=== PATIENT | female | born 1945 ===

== ENCOUNTER 2023-08-13 18:43 | Inpatient (IN) | payer OTHER ==
[~2023-08-13] VITALS: Ht 170.2 cm; Wt 71.8 kg
[2023-08-13 19:30] VITALS: PULSE 100; RESP 20; O2SAT 94
[2023-08-13 19:37] LABS: Basophils # (auto) 0.1 10 ^3/uL (0-0.2); Basophils % (auto) 0.7 % (0.0-2.0); Eosinophils # (auto) 0 10 ^3/uL (0-0.8); Eosinophils % (auto) 0.2 % (0.0-7.0); Hemoglobin 14.7 g/dL (12.2-16.2); Lymphocytes # (auto) 1.2 10 ^3/uL (0.4-5.4); Lymphocytes % (auto) 10.1 % (10.0-50.0); Mean Corpuscular Hemoglobin 29.9 pg (28.0-32.0); Mean Corpuscular Hgb Conc. 33.4 g/dL (32.0-36.0); Mean Corpuscular Volume 89.6 fL (80.0-100.0); Monocytes # (auto) 0.7 10 ^3/uL (0-1.3); Monocytes % (auto) 5.7 % (0.0-12.0); Neutrophils # (auto) 10.1 10 ^3/uL (1.6-8.6); Neutrophils % (auto) 83.3 % (37.0-80.0); Nucleated Red Blood Cells % 0.1 %; Red Blood Cells 4.91 10^6/uL (4.0-5.20); Red Cell Distribution Width 13.3 % (11.8-14.3); White Blood Cell 12.1 10^3/uL (4.4-10.8)
[2023-08-13 19:55] LABS: INR 0.99 (0.9-1.15); Partial Thromboplastin Time 26.2 SEC (24.5-34.5); Prothrombin Time 10.4 sec (9.3-11.8)
[2023-08-13 19:57] LABS: Alanine Aminotransferase 109 U/L (7-40); Albumin 4.4 g/dL (3.2-4.8); Alkaline Phosphatase 75 U/L (46-116); Anion Gap 8 (5-15); Aspartate Aminotransferase 120 U/L (13-40); BUN/Creatinine Ratio 14.3 (10.0-20.0); Blood Urea Nitrogen 12 mg/dL (9-23); Carbon Dioxide 23 mmol/L (20-30); Chloride 107 mmol/L (98-107); Glucose 144 mg/dL (74-106); Lipase 25 U/L (12-53); Magnesium 2.3 mg/dL (1.6-2.6); Potassium 4.6 mmol/L (3.5-5.1); Sodium 138 mmol/L (136-145)
[2023-08-13 19:58] LABS: Bilirubin, Total 0.5 mg/dL (0.2-1.0); Total Protein 7.1 g/dL (5.7-8.2)
[2023-08-13 20:56] LABS: Urine Bacteria NONE SEEN /hpf (None Seen); Urine Blood Negative /uL (Negative); Urine Clarity Clear (Clear); Urine Color Colorless (Yellow); Urine Protein, UAD Negative (Negative); Urine Specific Gravity 1.006 (1.001-1.035); Urine Urobilinogen Normal (Negative); Urine WBC 2 /hpf (0 - 5)
[2023-08-13] MEDS ORDERED: MORPHINE SULFATE 4 MG/ML SYR/VIAL IV ONE (21:45)
[2023-08-13] MEDS ORDERED: TEMAZEPAM 15 MG CAP PO ONE (21:45)
[2023-08-13] MEDS ORDERED: ENOXAPARIN SOD 80 MG/0.8ML SYRINGE SC ONE (21:45)
[2023-08-13] MEDS ORDERED: ONDANSETRON HCL 4 MG/2 ML VIAL IM ONE (21:45)
[2023-08-13 22:33] LABS: COVID19 ANTIGEN SOFIA FIA NEGATIVE (NEGATIVE); Respiratory Syncytial Virus Ag Negative
[2023-08-14] VITALS (8 sets, daily range): BP systolic 134–161; BP diastolic 69–90; PULSE 78–88; RESP 16–20; TEMP 98.2–98.6; O2SAT 92–95
[2023-08-14] MEDS ORDERED: NITROGLYCERIN 0.4 MG SL TAB SL PRN
[2023-08-14] MEDS ORDERED: MORPHINE SULFATE INJ 2 MG/ml SYRG IV PRN
[2023-08-14] MEDS ORDERED: ONDANSETRON HCL 4 MG/2 ML VIAL IV PRN
[2023-08-14] MEDS ORDERED: cefTRIAXone 1GM/50ML D5W 50 ML IV ONE
[2023-08-14 04:45] LABS: Basophils # (auto) 0.1 10 ^3/uL (0-0.2); Basophils % (auto) 1.2 % (0.0-2.0); Eosinophils # (auto) 0.1 10 ^3/uL (0-0.8); Eosinophils % (auto) 0.7 % (0.0-7.0); Hematocrit 42.4 % (36.0-46.0); Hemoglobin 14.3 g/dL (12.2-16.2); Lymphocytes % (auto) 22.3 % (10.0-50.0); Mean Corpuscular Hemoglobin 30.5 pg (28.0-32.0); Mean Corpuscular Hgb Conc. 33.7 g/dL (32.0-36.0); Mean Corpuscular Volume 90.3 fL (80.0-100.0); Monocytes # (auto) 0.6 10 ^3/uL (0-1.3); Monocytes % (auto) 7.2 % (0.0-12.0); Neutrophils # (auto) 6.2 10 ^3/uL (1.6-8.6); Neutrophils % (auto) 68.6 % (37.0-80.0); Red Cell Distribution Width 13.4 % (11.8-14.3)
[2023-08-14 05:00] LABS: Alanine Aminotransferase 78 U/L (7-40); Alkaline Phosphatase 65 U/L (46-116); Calcium 8.3 mg/dL (8.7-10.4); Carbon Dioxide 24 mmol/L (20-30); Chloride 112 mmol/L (98-107); Glucose 109 mg/dL (74-106)
[2023-08-14 05:01] LABS: Anion Gap 6 (5-15); Aspartate Aminotransferase 60 U/L (13-40); Bilirubin, Total 0.4 mg/dL (0.2-1.0); Blood Urea Nitrogen 8 mg/dL (9-23); Potassium 4.2 mmol/L (3.5-5.1); Sodium 142 mmol/L (136-145); Total Protein 6.7 g/dL (5.7-8.2)
[2023-08-14 05:42] LABS: BUN/Creatinine Ratio 10.1 (10.0-20.0)
[2023-08-14] MEDS ORDERED: IOHEXOL 350 MG/ML 100ML IJ ONE (06:35)
[2023-08-14] MEDS: LEVOTHYROXINE SODIUM 50 MCG TAB PO SCH (06:58)
[2023-08-14 07:13] LABS: LDL Cholesterol 90 mg/dL (< 100); Triglycerides 148 mg/dL (< 150)
[2023-08-14 07:15] LABS: Cholesterol 142 mg/dL (< 200); HDL Cholesterol 43 mg/dL (40-59)
[2023-08-14] MEDS: LOSARTAN POTASSIUM 25 MG TAB PO SCH (09:39)
[2023-08-14] MEDS: ENOXAPARIN SOD 40 MG/0.4 ML SYRINGE SC SCH (09:40)
[2023-08-14] MEDS: GABAPENTIN 400 MG CAP PO SCH ×2 (09:40→23:07)
[2023-08-14] MEDS ORDERED: AZITHROMYCIN 500MG/ 250ML 250 ML IV SCH (10:00)
[2023-08-14] MEDS: metroNIDAZOLE 500MG/100ML 100 ML IV SCH ×2 (13:50→23:09)
[2023-08-14] MEDS: hydrALAZINE HCL 20 MG/ML VL IV PRN (18:03)
[2023-08-14] MEDS: ACETAMINOPHEN 325 MG TAB PO PRN ×2 (18:03→23:36)
[2023-08-14] MEDS: ATORVASTATIN 20 MG TAB PO SCH (23:07)
[2023-08-14] MEDS: cefTRIAXone 1GM/50ML D5W 50 ML IV SCH (23:10)
[2023-08-15] VITALS (7 sets, daily range): BP systolic 118–145; BP diastolic 58–88; PULSE 67–84; RESP 16–20; TEMP 97.3–98.9; O2SAT 92–94
[2023-08-15 05:52] LABS: Basophils # (auto) 0.1 10 ^3/uL (0-0.2); Basophils % (auto) 0.8 % (0.0-2.0); Eosinophils # (auto) 0.1 10 ^3/uL (0-0.8); Eosinophils % (auto) 1.8 % (0.0-7.0); Hematocrit 43.5 % (36.0-46.0); Hemoglobin 14.5 g/dL (12.2-16.2); Lymphocytes # (auto) 1.9 10 ^3/uL (0.4-5.4); Lymphocytes % (auto) 24.1 % (10.0-50.0); Mean Corpuscular Hemoglobin 30.1 pg (28.0-32.0); Mean Corpuscular Hgb Conc. 33.4 g/dL (32.0-36.0); Mean Corpuscular Volume 90.2 fL (80.0-100.0); Monocytes # (auto) 0.7 10 ^3/uL (0-1.3); Monocytes % (auto) 8.6 % (0.0-12.0); Neutrophils # (auto) 5.1 10 ^3/uL (1.6-8.6); Neutrophils % (auto) 64.7 % (37.0-80.0); Nucleated Red Blood Cells % 0.1 %; Red Blood Cells 4.82 10^6/uL (4.0-5.20); Red Cell Distribution Width 13.4 % (11.8-14.3); White Blood Cell 7.8 10^3/uL (4.4-10.8)
[2023-08-15 05:56] LABS: Alanine Aminotransferase 59 U/L (7-40); Alkaline Phosphatase 63 U/L (46-116); Anion Gap 7 (5-15); Aspartate Aminotransferase 35 U/L (13-40); BUN/Creatinine Ratio 6.5 (10.0-20.0); Blood Urea Nitrogen 5 mg/dL (9-23); Calcium 8.6 mg/dL (8.7-10.4); Carbon Dioxide 23 mmol/L (20-30); Chloride 109 mmol/L (98-107); Glucose 93 mg/dL (74-106); Magnesium 2.4 mg/dL (1.6-2.6); Sodium 139 mmol/L (136-145)
[2023-08-15 05:57] LABS: Bilirubin, Total 0.8 mg/dL (0.2-1.0); Total Protein 6.7 g/dL (5.7-8.2)
[2023-08-15 05:58] LABS: Partial Thromboplastin Time 27.6 SEC (24.5-34.5); Prothrombin Time 10.5 sec (9.3-11.8)
[2023-08-15] MEDS: LEVOTHYROXINE SODIUM 50 MCG TAB PO SCH (06:04)
[2023-08-15] MEDS: metroNIDAZOLE 500MG/100ML 100 ML IV SCH ×3 (06:04→21:45)
[2023-08-15 08:06] LABS: Free Thyroxine Index 1.5 (1.2-4.9); Thyroxine (T4) 5.8 ug/dL (4.5-12.0)
[2023-08-15] MEDS: ASPirin 81 mg TAB PO SCH (09:11)
[2023-08-15] MEDS: LOSARTAN POTASSIUM 25 MG TAB PO SCH (09:11)
[2023-08-15] MEDS: GABAPENTIN 400 MG CAP PO SCH ×2 (09:11→21:43)
[2023-08-15] MEDS: ENOXAPARIN SOD 40 MG/0.4 ML SYRINGE SC SCH (09:13)
[2023-08-15] MEDS: D5W/LACTATED RINGERS 1,000 ML IV SCH (14:52)
[2023-08-15] MEDS: ACETAMINOPHEN 325 MG TAB PO PRN (17:45)
[2023-08-15] MEDS: ATORVASTATIN 20 MG TAB PO SCH (21:43)
[2023-08-15] MEDS: cefTRIAXone 1GM/50ML D5W 50 ML IV SCH (21:50)
[2023-08-16] VITALS (9 sets, daily range): BP systolic 138–162; BP diastolic 48–89; PULSE 49–94; RESP 16–18; TEMP 97.7–98.5; O2SAT 93–95
[2023-08-16] MEDS: D5W/LACTATED RINGERS 1,000 ML IV SCH ×2 (00:35→13:25)
[2023-08-16] MEDS: LEVOTHYROXINE SODIUM 50 MCG TAB PO SCH (06:05)
[2023-08-16] MEDS: metroNIDAZOLE 500MG/100ML 100 ML IV SCH ×3 (06:05→23:35)
[2023-08-16 07:15] LABS: Alanine Aminotransferase 45 U/L (7-40); Anion Gap 7 (5-15); Calcium 8.6 mg/dL (8.5-10.1); Carbon Dioxide 22 mmol/L (20-30); Chloride 111 mmol/L (98-107); Potassium 3.7 mmol/L (3.5-5.1); Sodium 140 mmol/L (136-145)
[2023-08-16 07:16] LABS: BUN/Creatinine Ratio 9.7 (10.0-20.0); Blood Urea Nitrogen 7 mg/dL (9-23); Glucose 127 mg/dL (74-106)
[2023-08-16 07:17] LABS: Aspartate Aminotransferase 25 U/L (13-40)
[2023-08-16 07:19] LABS: Bilirubin, Total 0.6 mg/dL (0.2-1.0); Total Protein 6.6 g/dL (5.7-8.2)
[2023-08-16] MEDS: ASPirin 81 mg TAB PO SCH (08:51)
[2023-08-16] MEDS: GABAPENTIN 400 MG CAP PO SCH ×2 (08:52→22:09)
[2023-08-16] MEDS: LOSARTAN POTASSIUM 25 MG TAB PO SCH (08:52)
[2023-08-16 09:32] LABS: Alkaline Phosphatase 60 U/L (46-116); Magnesium 2.2 mg/dL (1.6-2.6)
[2023-08-16] MEDS: ENOXAPARIN SOD 40 MG/0.4 ML SYRINGE SC SCH (09:57)
[2023-08-16] MEDS: ACETAMINOPHEN 325 MG TAB PO PRN (12:05)
[2023-08-16] MEDS: ATORVASTATIN 20 MG TAB PO SCH (22:00)
[2023-08-16] MEDS: cefTRIAXone 1GM/50ML D5W 50 ML IV SCH (22:07)
[2023-08-17] VITALS (7 sets, daily range): BP systolic 121–155; BP diastolic 63–82; PULSE 48–93; RESP 16–20; TEMP 97.3–98.3; O2SAT 93–95
[2023-08-17] MEDS ORDERED: ALPRAZolam 0.25 MG TAB PO ONE
[2023-08-17] MEDS: LEVOTHYROXINE SODIUM 50 MCG TAB PO SCH (06:09)
[2023-08-17] MEDS: metroNIDAZOLE 500MG/100ML 100 ML IV SCH ×3 (06:10→22:37)
[2023-08-17] MEDS: D5W/LACTATED RINGERS 1,000 ML IV SCH ×2 (06:10→16:10)
[2023-08-17] MEDS: ASPirin 81 mg TAB PO SCH (09:30)
[2023-08-17] MEDS: ENOXAPARIN SOD 40 MG/0.4 ML SYRINGE SC SCH (09:30)
[2023-08-17] MEDS: GABAPENTIN 400 MG CAP PO SCH ×2 (09:31→22:37)
[2023-08-17] MEDS: LOSARTAN POTASSIUM 25 MG TAB PO SCH (09:31)
[2023-08-17] MEDS: cefTRIAXone 1GM/50ML D5W 50 ML IV SCH (22:36)
[2023-08-17] MEDS: ACETAMINOPHEN 325 MG TAB PO PRN (23:59)
[2023-08-18] VITALS (13 sets, daily range): BP systolic 119–152; BP diastolic 51–89; PULSE 62–160; RESP 12–85; TEMP 97.6–98; O2SAT 92–98
[2023-08-18] MEDS: hydrALAZINE HCL 20 MG/ML VL IV PRN (06:15)
[2023-08-18] MEDS: metroNIDAZOLE 500MG/100ML 100 ML IV SCH ×3 (06:16→21:16)
[2023-08-18] MEDS: D5W/LACTATED RINGERS 1,000 ML IV SCH ×2 (06:16→18:31)
[2023-08-18] MEDS: LEVOTHYROXINE SODIUM 50 MCG TAB PO SCH (06:50)
[2023-08-18] MEDS ORDERED: ceFAZolin 1GM/50ML 100 ML IV ONE (09:15)
[2023-08-18] MEDS ORDERED: ACCU-CHEK COMFORT CURVE STRIP VI ONE (09:15)
[2023-08-18] MEDS ORDERED: METOCLOPRAMIDE HCL 5MG/ml INJ 2ml VIAL IV PRN (09:15)
[2023-08-18] MEDS ORDERED: MORPHINE SULFATE INJ 2 MG/ml SYRG IV PRN (09:15)
[2023-08-18] MEDS ORDERED: HYDROmorphone HCL 2 MG/ML VL/or syr IV PRN ×2 (09:15)
[2023-08-18] MEDS ORDERED: MEPERIDINE HCL (25 MG/ML) 1ML VIAL ONE (09:15)
[2023-08-18] MEDS ORDERED: POVIDONE IODINE 10 % TOPICAL OINT 30GM TOP ONE (09:16)
[2023-08-18] MEDS ORDERED: ROCURONIUM 10MG/ML 10ML VIAL IV ONE (09:16)
[2023-08-18] MEDS ORDERED: SUCCINYLCHOLINE CHLORIDE 20 MG/ML 10ML VIAL IV ONE (09:16)
[2023-08-18] MEDS ORDERED: ONDANSETRON HCL 4 MG/2 ML VIAL ONE (09:17)
[2023-08-18] MEDS ORDERED: ETOMIDATE (2MG/ML) 20ML VIAL IV ONE (09:17)
[2023-08-18] MEDS ORDERED: LIDOCAINE 2% (LOCAL ANESTH.) PF 5ml SDV ONE (09:17)
[2023-08-18] MEDS ORDERED: DexAMETHasone SOD PHOS 10MG/1ML VIAL INJ ONE (09:17)
[2023-08-18] MEDS ORDERED: NEOSTIGMINE 1 MG/ML INJ (10mg/10ML VIAL) ONE (09:17)
[2023-08-18] MEDS ORDERED: GLYCOPYRROLATE 0.2 MG/ML 1ML VIAL ONE (09:17)
[2023-08-18] MEDS ORDERED: SODIUM CHLORIDE LOCK 10 ML ONE (09:17)
[2023-08-18] MEDS ORDERED: MIDAZOLAM HCL 2MG/2ML 2ml VIAL (1mg/ml) ONE (09:17)
[2023-08-18] MEDS ORDERED: fentaNYL CITRATE 100 MCG/2 ML VL ONE (09:19)
[2023-08-18] MEDS: LOSARTAN POTASSIUM 25 MG TAB PO SCH (10:00)
[2023-08-18] MEDS: GABAPENTIN 400 MG CAP PO SCH ×2 (10:00→22:27)
[2023-08-18] MEDS: ENOXAPARIN SOD 40 MG/0.4 ML SYRINGE SC SCH (10:00)
[2023-08-18] MEDS: ASPirin 81 mg TAB PO SCH (10:00)
[2023-08-18] MEDS: cefTRIAXone 1GM/50ML D5W 50 ML IV SCH (22:27)
[2023-08-19] VITALS (10 sets, daily range): BP systolic 107–142; BP diastolic 47–80; PULSE 65–82; RESP 12–20; TEMP 97.5–98.3; O2SAT 92–98
[2023-08-19 05:17] LABS: Basophils # (auto) 0 10 ^3/uL (0-0.2); Basophils % (auto) 0.5 % (0.0-2.0); Eosinophils # (auto) 0 10 ^3/uL (0-0.8); Hematocrit 39.9 % (36.0-46.0); Hemoglobin 13.3 g/dL (12.2-16.2); Mean Corpuscular Hemoglobin 30.2 pg (28.0-32.0); Mean Corpuscular Hgb Conc. 33.3 g/dL (32.0-36.0); Mean Corpuscular Volume 90.7 fL (80.0-100.0); Monocytes # (auto) 0.5 10 ^3/uL (0-1.3); Monocytes % (auto) 5.7 % (0.0-12.0); Neutrophils # (auto) 7.7 10 ^3/uL (1.6-8.6); Neutrophils % (auto) 82.8 % (37.0-80.0); Red Blood Cells 4.39 10^6/uL (4.0-5.20); Red Cell Distribution Width 13.4 % (11.8-14.3); White Blood Cell 9.3 10^3/uL (4.4-10.8)
[2023-08-19 05:33] LABS: Alanine Aminotransferase 71 U/L (7-40); Alkaline Phosphatase 58 U/L (46-116); Anion Gap 6 (5-15); Calcium 8.6 mg/dL (8.7-10.4); Carbon Dioxide 24 mmol/L (20-30); Chloride 110 mmol/L (98-107); Glucose 168 mg/dL (74-106); Sodium 140 mmol/L (136-145)
[2023-08-19 05:34] LABS: Albumin 3.9 g/dL (3.2-4.8); Aspartate Aminotransferase 59 U/L (13-40); BUN/Creatinine Ratio 11.3 (10.0-20.0); Bilirubin, Total 0.4 mg/dL (0.2-1.0); Blood Urea Nitrogen 8 mg/dL (9-23); Total Protein 6.3 g/dL (5.7-8.2)
[2023-08-19] MEDS: metroNIDAZOLE 500MG/100ML 100 ML IV SCH (05:37)
[2023-08-19] MEDS: LEVOTHYROXINE SODIUM 50 MCG TAB PO SCH (05:43)
[2023-08-19] MEDS: D5W/LACTATED RINGERS 1,000 ML IV SCH (05:43)
[2023-08-19 06:26] LABS: Magnesium 2.1 mg/dL (1.6-2.6)
[2023-08-19] MEDS: GABAPENTIN 400 MG CAP PO SCH (09:50)
[2023-08-19] MEDS: LOSARTAN POTASSIUM 25 MG TAB PO SCH (09:50)
[2023-08-19] MEDS: ENOXAPARIN SOD 40 MG/0.4 ML SYRINGE SC SCH (09:50)
[2023-08-19] MEDS: ASPirin 81 mg TAB PO SCH (09:50)
== END 2023-08-19 14:50 | disposition home or self-care (01) | DRG 417 ==
LOC: ER 18:43 → EDBD 18:43 → TELE-WESTW 08-14 00:01 → TELE 08-14 00:01 → TELE-WESTW 08-14 08:13 → ICU CENTRL 08-18 15:06 → DOU IN ICU 08-18 15:15
PROVIDERS: ADMIT Nurse Practitioner; ATTEND Internal Medicine Geriatric Medicine
PROC: 0FT44ZZ Resection of Gallbladder, Percutaneous Endoscopic Approach (ICD-10-PCS; principal; 2023-08-18 09:34)
DX: K80.12 Calculus of gallbladder with acute and chronic cholecystitis without obstruction (principal); I21.A1 Myocardial infarction type 2; I48.92 Unspecified atrial flutter; N39.0 Urinary tract infection, site not specified; I10 Essential (primary) hypertension; E11.65 Type 2 diabetes mellitus with hyperglycemia; E03.9 Hypothyroidism, unspecified; E78.5 Hyperlipidemia, unspecified; R74.01 Elevation of levels of liver transaminase levels; I44.30 Unspecified atrioventricular block; Z86.73 Personal history of transient ischemic attack (TIA), and cerebral infarction without residual deficits; Z87.891 Personal history of nicotine dependence; Z79.82 Long term (current) use of aspirin
CPT/HCPCS: 36415; 70450; 71045; 71275; 76705; 78226; 80053; 80061; 81001; 82010; 82962; 83036; 83690; 83735; 83880; 84443; 84484; 85025; 85379; 85610; 85730; 86850; 86900; 86901; 87081; 87426; 87807; 93005; 93306; 97163; 99291; G0378; J0330; J0690; J0696; J1100; J2001; J2250; J2405; J3490

== ENCOUNTER 2023-08-27 15:26 | Emergency (ER) | payer OTHER ==
[~2023-08-27] VITALS: Ht 170.2 cm; Wt 68.0 kg
[2023-08-27 15:55] VITALS: PULSE 75; RESP 22; O2SAT 94
[2023-08-27 16:38] LABS: Basophils # (auto) 0.1 10 ^3/uL (0-0.2); Eosinophils # (auto) 0.1 10 ^3/uL (0-0.8); Eosinophils % (auto) 0.9 % (0.0-7.0); Hematocrit 42.2 % (36.0-46.0); Hemoglobin 14.1 g/dL (12.2-16.2); Lymphocytes # (auto) 1.6 10 ^3/uL (0.4-5.4); Lymphocytes % (auto) 15.5 % (10.0-50.0); Mean Corpuscular Hemoglobin 30.1 pg (28.0-32.0); Mean Corpuscular Hgb Conc. 33.3 g/dL (32.0-36.0); Mean Corpuscular Volume 90.4 fL (80.0-100.0); Monocytes # (auto) 0.6 10 ^3/uL (0-1.3); Monocytes % (auto) 5.3 % (0.0-12.0); Neutrophils # (auto) 8.1 10 ^3/uL (1.6-8.6); Neutrophils % (auto) 77.3 % (37.0-80.0); Nucleated Red Blood Cells % 0.1 %; Red Blood Cells 4.67 10^6/uL (4.0-5.20); Red Cell Distribution Width 13.5 % (11.8-14.3); White Blood Cell 10.5 10^3/uL (4.4-10.8)
[2023-08-27 16:54] LABS: INR 0.98 (0.9-1.15); Partial Thromboplastin Time 26.8 SEC (24.5-34.5); Prothrombin Time 10.3 sec (9.3-11.8)
[2023-08-27] MEDS ORDERED: LIDOCAINE 2%HCL (LOCAL ANESTH.) INJ 10ml MDV IJ ONE (17:00)
[2023-08-27 17:01] LABS: Alanine Aminotransferase 38 U/L (7-40); Albumin 4.2 g/dL (3.2-4.8); Alkaline Phosphatase 115 U/L (46-116); Anion Gap 7 (5-15); Aspartate Aminotransferase 25 U/L (13-40); Bilirubin, Total 0.3 mg/dL (0.2-1.0); Blood Urea Nitrogen 7 mg/dL (9-23); Calcium 9.2 mg/dL (8.5-10.1); Carbon Dioxide 25 mmol/L (20-30); Chloride 109 mmol/L (98-107); Glucose 97 mg/dL (74-106); Potassium 4.1 mmol/L (3.5-5.1); Sodium 141 mmol/L (136-145); Total Protein 7.2 g/dL (5.7-8.2)
[2023-08-27] MEDS ORDERED: hydrALAZINE HCL 20 MG/ML VL IV PRN (17:45)
[2023-08-27] MEDS ORDERED: ENOXAPARIN SOD 100 MG/1 ML SYRINGE SC ONE (17:45)
[2023-08-27] MEDS ORDERED: ACETAMINOPHEN 325 MG TAB PO PRN ×2 (17:45→18:30)
[2023-08-27] MEDS ORDERED: MORPHINE SULFATE INJ 2 MG/ml SYRG IV ONE (17:45)
[2023-08-27] MEDS ORDERED: NITROGLYCERIN 0.4 MG SL TAB SL PRN ×2 (17:45→18:30)
[2023-08-27] MEDS ORDERED: MORPHINE SULFATE INJ 2 MG/ml SYRG IV PRN ×2 (17:45→18:30)
[2023-08-27] MEDS ORDERED: IOHEXOL 350 MG/ML 100ML IJ ONE (18:18)
[2023-08-27] MEDS ORDERED: DEXTROSE (50%) 50ML SYRG IV PRN (18:30)
[2023-08-27] MEDS ORDERED: ONDANSETRON HCL 4 MG/2 ML VIAL IV PRN (18:30)
[2023-08-27] MEDS ORDERED: SODIUM CHLORIDE 0.9% 1,000 ML IV SCH (18:30)
[2023-08-27 19:19] LABS: Urine Bacteria FEW /hpf (None Seen); Urine Blood Negative /uL (Negative); Urine Clarity Clear (Clear); Urine Color Colorless (Yellow); Urine Protein, UAD Negative (Negative); Urine Specific Gravity 1.005 (1.001-1.035); Urine Urobilinogen Normal (Negative); Urine WBC 1 /hpf (0 - 5)
[2023-08-27 22:00] VITALS: BP 153/110; TEMP 98.1
[2023-08-27] MEDS ORDERED: InsuLIN REG 1unit/0.01ml Soln (100units/ml) SC SCH (22:00)
[2023-08-27] MEDS ORDERED: ACCU-CHEK COMFORT CURVE STRIP VI SCH (22:00)
[2023-08-27 23:03] VITALS: PULSE 89; RESP 18; O2SAT 96
[2023-08-28] MEDS ORDERED: ASPirin 81 mg TAB PO SCH (10:00)
[2023-08-28 13:41] LABS: Magnesium 2.4 mg/dL (1.6-2.6)
== END 2023-08-27 17:34 | disposition short-term general hospital (02) ==
LOC: EDBD 15:26 → ER 15:26 → TELE 17:34 → UNDODISIN 18:22 → TELE 18:22 → UNDOADMIN 18:22
PROC: 5A1223Z Performance of Cardiac Pacing, Continuous (ICD-10-PCS; principal; 2023-08-27)
DX: I44.1 Atrioventricular block, second degree (principal); I62.01 Nontraumatic acute subdural hemorrhage; R55 Syncope and collapse; E11.9 Type 2 diabetes mellitus without complications; R42 Dizziness and giddiness; E78.5 Hyperlipidemia, unspecified; I10 Essential (primary) hypertension; F41.9 Anxiety disorder, unspecified; I16.0 Hypertensive urgency; K21.9 Gastro-esophageal reflux disease without esophagitis; Z90.49 Acquired absence of other specified parts of digestive tract; Z86.73 Personal history of transient ischemic attack (TIA), and cerebral infarction without residual deficits; Z95.0 Presence of cardiac pacemaker; Z82.0 Family history of epilepsy and other diseases of the nervous system
CPT/HCPCS: 36415; 70450; 71045; 71275; 80053; 80061; 81001; 83735; 83880; 84443; 84484; 85025; 85379; 85610; 85730; 93005; 96361; 96372; 96374; 99291; J0360; J1650; J2001; J2270; J7030; Q9967; G0378